=== PATIENT | male | born 1950 | race Caucasian/White ===

== ENCOUNTER → 2019-05-09 | Outpatient (CLI) | payer MEDICARE, OTHER ==
--- NOTE | 2019-05-09 13:47 | RAD ---
EXAM DESCRIPTION: Knee,Left Complete CLINICAL HISTORY: 69 years, Male, KNEE PAIN COMPARISON: None TECHNIQUE: Four views left knee FINDINGS: Four views left knee demonstrate minimal degenerative changes with no significant hemarthrosis. No fracture or dislocation is seen. The joint spaces well-maintained. IMPRESSION: 1. Mild degenerative changes otherwise negative left knee four views Electronically signed by: Nicholas Schneider MD 05/09/2019 1:46 PM [facility]
--- NOTE | 2019-05-09 13:48 | RAD ---
EXAM DESCRIPTION: Pelvis CLINICAL HISTORY: 69 years Male, LT HIP PAIN COMPARISON: None. FINDINGS: Single view of the pelvis demonstrates the bony pelvic ring intact with stents of prior surgery and mild scoliosis of the lower lumbar spine convex to the left. Right hip is essentially normal with severe end-stage degenerative changes and [id number] appearance of the left hip with hypertrophic marginal osteophytes. No acute fracture or deformity noted. IMPRESSION: End-stage degenerative left hip with [id number]-fa-hqkh appearance and marked hypertrophic changes and deformity of the acetabulum and femoral head. Electronically signed by: Nicholas Schneider MD 05/09/2019 1:[address] [facility]
== END ==
LOC: RAD 09:32
PROVIDERS: ATTEND Orthopaedic Surgery
DX: M16.12 Unilateral primary osteoarthritis, left hip (principal); M95.9 Acquired deformity of musculoskeletal system, unspecified; M17.12 Unilateral primary osteoarthritis, left knee

== ENCOUNTER → 2019-08-16 | Outpatient (CLI) | payer MEDICARE, OTHER ==
--- NOTE | 2019-08-16 19:16 | CT ---
EXAM DESCRIPTION: Pelvis: Computed Tomography. CLINICAL HISTORY: OSTEOARTHRITIS OF HIP LEFT COMPARISON: None. TECHNIQUE: Spiral-axial scans 2.5 x 2.5 mm intervals through the pelvis: no water soluble barium contrast; no IV contrast. Coronal and sagittal 2.0 mm reconstructions. Total Exam DLP: 596 mGy-cm. This exam was performed according to our departmental CT dose-optimization program which includes automated exposure control, adjustment of the mA and/or kV according to patient size and/or use of iterative reconstruction technique; to reduce radiation dose to as low as reasonably achievable (ALARA). FINDINGS: Hip Joints: Significant narrowing of the left hip joint space with deformity indicated by flattening of the normal convexity of the left femoral head surface and broadening of the concavity of the left acetabular surface. Wxbt-mr-oowl more prominent in the anterior joint space. Subchondral sclerosis and cyst/radiolucency formation femoral head and acetabulum. Several soft tissue bone fragment fragments. One is abutting the anterior lateral femoral head and the anterior lateral acetabulum measuring 3.5 x 2.2 cm in the transverse plane and 2.6 cm in the oblique sagittal plane. Well-corticated. A much smaller fragment less than 1 cm in greatest dimension superior to this fragment and lateral to the superior acetabulum anteriorly, not well corticated. A third fragment is anterior to the acetabulum and on the superior medial aspect of the large fragment measuring 2.4 x 1.3 cm in the transverse plane and 9 mm in the oblique sagittal plane. Well corticated. Large hypertrophic spur originating from the femoral head between the posterior medial femoral head and the acetabular articular surface. This is continuous with hypertrophic spur extending inferiorly from the medial articular surface. Small intra-articular bone fragments are noted. Pelvic Organs: Prostate gland with calcifications abutting th of the urinary bladder and the midline and slightly to the left of midline and also abutting the seminal vesicles. No free fluid. Minimal thickening of the urinary bladder wall with no radiodense stones. Mesentery: Negative. Small Bowel: Included segments normal caliber. Terminal Ileum: Not visualized. Cecum: Not visualized. Colon: Distal sigmoid colon is moderately redundant containing fecal matter with no complications. Spine and Bony Pelvis: Disc desiccation disc bulging and spondylosis at L3-4 and L4-5 with significant canal and foraminal involvement. Also facet arthrosis at both levels. Inferior lumbar levoscoliosis. Minimal narrowing of the right hip joint. Hypertrophic changes in the superolateral acetabulum. Enthesophytes on the iliac crests and pubic symphysis Inguinal Canals: Bilateral fatty inguinal hernias not containing bowel larger on the left than right. Bilateral inguinal lymph nodes. Pelvic Wall/Back Soft Tissues: Negative. IMPRESSION: 1. Advanced severe osteoarthritis left hip joint with ucvw-on-flgy on the anterior aspect. This bodies as described. Smallest fragment or fragments may represent acute fracture or recent displacement. 2. Scoliosis and spondylosis inferior lumbar spine. 3. Bilateral fatty inguinal hernias with no complications. 4. Redundant sigmoid colon distally with mild to moderate constipation. Electronically signed by: Jonah Workman MD 08/16/2019 7:15 PM CDT
== END ==
LOC: CT 10:13
PROVIDERS: ATTEND Orthopaedic Surgery
DX: M16.12 Unilateral primary osteoarthritis, left hip (principal); M21.852 Other specified acquired deformities of left thigh; M24.052 Loose body in left hip; M25.752 Osteophyte, left hip; M41.9 Scoliosis, unspecified; M47.896 Other spondylosis, lumbar region; K40.20 Bilateral inguinal hernia, without obstruction or gangrene, not specified as recurrent; K63.89 Other specified diseases of intestine; K59.00 Constipation, unspecified

== ENCOUNTER 2019-08-20 05:30 | Inpatient (IN) | payer MEDICARE, OTHER ==
[2019-08-20] MEDS ORDERED: SODIUM CHL 0.9% 100ML MINI-BAG 100 ML IVPB ONE (05:47)
[2019-08-20] MEDS ORDERED: SODIUM CHLORIDE 0.9% 100ML 100 ML IVPB ONE (05:48)
[2019-08-20] MEDS ORDERED: SODIUM CHLORIDE 0.9% 250ML 250 ML ONE (05:48)
[2019-08-20] MEDS ORDERED: ceFAZolin SODIUM 1 GM VIAL ONE ×2 (05:48→06:32)
[2019-08-20] MEDS ORDERED: LACTATED RINGERS 1,000 ML ONE ×2 (05:48→10:37)
[2019-08-20] MEDS ORDERED: VANCOMYCIN HCL INJ 1,000 MG VIAL IVPB ONE ×3 (05:49→06:48)
[2019-08-20] MEDS ORDERED: TRANEXAMIC ACID 1,000 MG/10 ML VIAL ONE ×2 (05:49→05:51)
[2019-08-20] MEDS ORDERED: BUPIVACAINE 0.5% 30 ML VIAL INJ ONE ×2 (06:32→06:48)
[2019-08-20] MEDS ORDERED: BUPIVACAINE LIPOSOME 13.3 MG/ML VIAL INJ ONE ×3 (06:32→07:11)
[2019-08-20] MEDS ORDERED: MIDAZOLAM INJ 5 MG/5 ML VIAL ONE (06:35)
[2019-08-20] MEDS ORDERED: ceFAZolin SODIUM 1 GM VIAL IRRIG ONE (06:48)
[2019-08-20] MEDS ORDERED: KETAMINE HCL 100 MG/ML VIAL IV ONE (07:00)
[2019-08-20] MEDS ORDERED: HYDROmorphone HCL INJ 2 MG/ML VIAL IV ONE (07:00)
[2019-08-20] MEDS ORDERED: ZOLPIDEM TARTRATE 5 MG TAB PO PRN (07:07)
[2019-08-20] MEDS ORDERED: SODIUM CHLORIDE 0.9% (FLUSH) 10 ML SYG IV PRN (07:07)
[2019-08-20] MEDS ORDERED: ONDANSETRON INJ 4 MG/2 ML VIAL IV PRN (07:07)
[2019-08-20] MEDS ORDERED: NALOXONE HCL INJ 0.4 MG/ML VIAL IV PRN (07:07)
[2019-08-20] MEDS ORDERED: ACETAMINOPHEN 500 MG TAB PO PRN (07:07)
[2019-08-20] MEDS ORDERED: traMADol HCL 50 MG TAB PO PRN (07:07)
[2019-08-20] MEDS ORDERED: ACETAMINOPHEN 325 MG TAB PO PRN (07:07)
[2019-08-20] MEDS ORDERED: PROMETHAZINE HCL INJ 12.5 MG in SODIUM CHLORIDE 0.9% 50ML 50 ML IVPB PRN (07:07)
[2019-08-20] MEDS ORDERED: MORPHINE SULFATE INJ 10 MG/ML VIAL IV PRN (07:07)
[2019-08-20] MEDS ORDERED: MORPHINE SULFATE INJ 10 MG/ML VIAL IM PRN (07:07)
[2019-08-20] MEDS ORDERED: TEMAZEPAM 15 MG CAP PO PRN (07:07)
[2019-08-20] MEDS ORDERED: ALUMINUM & MAGNESIUM HYDROXIDE 30 ML UD PO PRN (07:07)
[2019-08-20] MEDS ORDERED: BENZOCAINE-MENTH LOZ (CEPACOL) 1 EA LOZ MT PRN (07:07)
[2019-08-20] MEDS ORDERED: TRANEXAMIC ACID INJ 1,000 MG in SODIUM CHLORIDE 0.9% 100ML 100 ML IVPB ONE (07:07)
[2019-08-20] MEDS ORDERED: BISACODYL SUPPOSITORY 10 MG PR PRN (07:07)
[2019-08-20] MEDS ORDERED: PROMETHAZINE HCL INJ 25 MG in SODIUM CHLORIDE 0.9% 50ML 50 ML IVPB PRN (07:07)
[2019-08-20] MEDS ORDERED: MAGNESIUM HYDROXIDE 30 ML UD PO PRN (07:07)
[2019-08-20] MEDS ORDERED: CYCLOBENZAPRINE HCL 10 MG TAB PO PRN (07:07)
[2019-08-20] MEDS ORDERED: MORPHINE PCA 1 MG/ML 100 ML BAG IVPB SCH (07:30)
[2019-08-20] MEDS ORDERED: ELECTROLYTE-A 1,000 ML IVS ONE (08:29)
[2019-08-20] MEDS ORDERED: DEXAMETHASONE INJ 10 MG/ML VIAL IV ONE (10:00)
[2019-08-20] MEDS ORDERED: LIDOCAINE 1% 10 ML VIAL INJ ONE (10:00)
[2019-08-20] MEDS ORDERED: diphenhydrAMINE HCL 50 MG/ML VIAL IV ONE (10:00)
[2019-08-20] MEDS ORDERED: EPINEPHrine HCL AMP 1 MG/ML AMP IVPB ONE (10:00)
[2019-08-20] MEDS ORDERED: SODIUM CHLORIDE 0.9% 50 ML VIAL INJ ONE (10:00)
[2019-08-20] MEDS ORDERED: ePHEDrine SULF 50 MG/ML IV ONE (10:00)
[2019-08-20] MEDS ORDERED: PROPOFOL 200 MG/20 ML VIAL IV ONE (10:00)
[2019-08-20] MEDS ORDERED: MAGNESIUM SULFATE INJ 1 GM/2 ML VIAL IVPB ONE (10:00)
[2019-08-20] MEDS ORDERED: CADD ADMIN SET 1 EA PKG INJ ONE (10:05)
--- NOTE | 2019-08-20 11:49 | RAD ---
Pelvis 2 views INDICATION: Postoperative assessment IMPRESSION: Previous multilevel lumbar laminectomy and fusion. Status post left hip arthroplasty. Patient is rotated. No evident complication. Femoral stem is not completely visualized. Electronically signed by: Ramsey Harris MD 08/20/2019 11:47 AM CDT
--- NOTE | 2019-08-20 11:50 | RAD ---
Left hip 2 views INDICATION: Postoperative assessment IMPRESSION: Total left hip arthroplasty. Lucent area possibly cystic change or reeming inferior acetabulum into the ischial tuberosity. No evidence of fracture or dislocation. Electronically signed by: Ramsey Harris MD 08/20/2019 11:49 AM CDT
[2019-08-20] MEDS ORDERED: diphenhydrAMINE HCL 50 MG/ML VIAL ONE (13:36)
[2019-08-20] MEDS: DEX 5% W/NACL 0.45% 1000ML 1,000 ML IVS PRN (13:41)
[2019-08-20] MEDS: diphenhydrAMINE HCL 50 MG/ML VIAL IV PRN (13:53)
[2019-08-20] MEDS: IV SET AND CAP CHANGE INJ INJ SCH (16:22)
[2019-08-20] MEDS: CELECOXIB 100 MG CAP PO SCH ×2 (16:22→16:38)
[2019-08-20] MEDS: MAGNESIUM OXIDE 400 MG TAB PO SCH (16:23)
[2019-08-20] MEDS: ceFAZolin SODIUM 2 GM in SODIUM CHLORIDE 0.9% 100ML 100 ML IVPB SCH (16:38)
[2019-08-20] MEDS: VANCOMYCIN HCL INJ 1,000 MG in SODIUM CHLORIDE 0.9% 250ML 250 ML IVPB SCH (18:04)
[2019-08-20] MEDS ORDERED: ENOXAPARIN SODIUM 30 MG/0.3 ML SYG SUBCU ONE (20:12)
[2019-08-20] MEDS: DOCUSATE CALCIUM 240 MG CAP PO SCH (20:39)
[2019-08-20] MEDS: ENOXAPARIN SODIUM 30 MG/0.3 ML SYG SUBCU SCH (22:51)
[2019-08-21] MEDS: ceFAZolin SODIUM 2 GM in SODIUM CHLORIDE 0.9% 100ML 100 ML IVPB SCH ×2 (00:12→08:39)
[2019-08-21] MEDS ORDERED: LEVOTHYROXINE SODIUM 0.1 MG TAB ONE (02:53)
[2019-08-21] MEDS ORDERED: OMEPRAZOLE CAP 20 MG CAP ONE (02:53)
[2019-08-21] MEDS: LEVOTHYROXINE SODIUM 0.1 MG TAB PO SCH (06:07)
[2019-08-21] MEDS: OMEPRAZOLE CAP 20 MG CAP PO SCH (06:08)
[2019-08-21] MEDS: VANCOMYCIN HCL INJ 1,000 MG in SODIUM CHLORIDE 0.9% 250ML 250 ML IVPB SCH (06:08)
[2019-08-21] MEDS: CELECOXIB 100 MG CAP PO SCH ×2 (07:55→17:41)
[2019-08-21] MEDS: MAGNESIUM OXIDE 400 MG TAB PO SCH (08:40)
[2019-08-21] MEDS: TELMISARTAN 80 MG PO SCH (08:40)
[2019-08-21] MEDS: HYDROcodone 5MG/APAP 325MG 1 EA TAB PO PRN ×2 (08:40→13:18)
[2019-08-21] MEDS: diphenhydrAMINE HCL 50 MG/ML VIAL IV PRN (08:43)
[2019-08-21] MEDS: ALLOPURINOL 300 MG TAB PO SCH (10:07)
[2019-08-21] MEDS: ENOXAPARIN SODIUM 30 MG/0.3 ML SYG SUBCU SCH ×2 (11:56→22:35)
--- NOTE | 2019-08-21 13:07 | CONS ---
SUPERVISING PHYSICIAN: Angela Soto MD DATE OF CONSULTATION: 08/20/19 CHIEF COMPLAINT: Osteoarthritis of the left hip. HISTORY OF PRESENT ILLNESS: This is a 69-year-old male patient who has had a longstanding history of left hip pain with osteoarthritis. He has tried conservative measures and failed to get relief. He requested Dr. Medhat Valladares, orthopedic surgeon, for operative intervention. He was admitted today for surgical intervention. There were no problems intraoperatively and I am seeing the patient postoperatively on the Medical/Surgical Floor. PAST MEDICAL HISTORY: 1. Hypertension. 2. Hypothyroidism. 3. Gastroesophageal reflux disease. 4. Gout. PAST SURGICAL HISTORY: 1. Neck and back surgery. 2. Neck surgery x2. 3. Left knee surgery. 4. Spinal surgery. OUTPATIENT MEDICATIONS: 1. Allopurinol. 2. Levothyroxine. 3. Omeprazole. 4. Telmisartan. ALLERGIES: SULFA ANTIBIOTICS. CODE STATUS: He is DNR. SOCIAL HISTORY: He lives in [place]. He is . He denies smoking, ETOH or illicit drug use. REVIEW OF SYSTEMS: Negative except as per history of present illness. PHYSICAL EXAMINATION: VITAL SIGNS: Temperature 97.4, heart rate 78, blood pressure 132/77, respirations 16, O2 saturation 95% on room air. GENERAL: This is a 69-year-old male patient who is lying in his hospital bed. He is in no acute distress. HEENT: Normocephalic, atraumatic. Pupils are equal and reactive. Oropharynx is clear. NECK: Supple without mass. RESPIRATORY: Essentially clear to auscultation bilaterally. CARDIOVASCULAR: Regular rate and rhythm. GASTROINTESTINAL: Abdomen is soft, nondistended, nontender. Bowel sounds are positive. EXTREMITIES: He has a dressing to his left lateral hip that is dry and intact. Bilateral pedal pulses are palpable at+2. NEUROLOGIC: Awake, alert and oriented times three. Cranial nerves II-XII are grossly intact as tested. LABORATORY: His urine drug screen was negative. RADIOLOGY: Reports are per the EMR. IMPRESSION: 1. Osteoarthritis of the left hip status post left total hip arthroplasty performed by Dr. Medhat Valladares, orthopedic surgeon, postoperative day #0. 2. Hypertension. 3. Hypothyroidism on supplementation. 4. Gastroesophageal reflux disease. 5. Gout. PLAN: We will continue present supportive care. Orthopedic issues will be per Dr. Medhat Valladares, orthopedic surgeon. He will begin physical therapy for strengthening and conditioning tomorrow. His home medications have been restarted. I have encouraged good pulmonary hygiene. We will continue to monitor the patient closely and follow as needed. [facility][id number] [facility]
[2019-08-21] MEDS: DEX 5% W/NACL 0.45% 1000ML 1,000 ML IVS PRN (18:47)
[2019-08-21] MEDS: DOCUSATE CALCIUM 240 MG CAP PO SCH (21:20)
[2019-08-22] MEDS: OMEPRAZOLE CAP 20 MG CAP PO SCH (06:59)
[2019-08-22] MEDS: LEVOTHYROXINE SODIUM 0.1 MG TAB PO SCH (07:00)
[2019-08-22] MEDS: CELECOXIB 100 MG CAP PO SCH ×2 (07:32→18:03)
--- NOTE | 2019-08-22 08:16 | PN ---
SUPERVISING PHYSICIAN: Angela Soto MD DATE: 08/21/19 SUBJECTIVE: The patient is sitting up in his chair. He has no complaints of nausea, vomiting or diarrhea. He also felt like his physical therapy went well this morning. OBJECTIVE: VITAL SIGNS: Temperature 97.8, heart rate 68, blood pressure 117/64, respiratory rate 18, O2 saturation 96% on room air. RESPIRATORY: Essentially clear to auscultation bilaterally. CARDIAC: Regular rate and rhythm. EXTREMITIES: He has a dressing to his left lateral hip that is dry and intact. Bilateral pedal pulses are palpable at +2. NEUROLOGIC: Awake, alert and oriented times three. LABORATORY: Hemoglobin 11.3, hematocrit 34. All other labs and films have been reviewed via the EMR. ASSESSMENT: 1. Osteoarthritis of the left hip status post left total hip arthroplasty performed by Dr. Medhat Valladares, orthopedic surgeon, postoperative day #1. 2. Hypertension. 3. Hypothyroidism on supplementation. 4. Gastroesophageal reflux disease. 5. Gout. PLAN: We will continue present supportive care. Orthopedic issues will be per Dr. Medhat Valladares, orthopedic surgeon. He will continue with his physical therapy for strengthening and conditioning. We will hope for discharge on or Monday. I have encouraged good pulmonary hygiene. We will continue to monitor the patient closely and follow as needed. #[id number] [facility]
[2019-08-22] MEDS: HYDROcodone 5MG/APAP 325MG 1 EA TAB PO PRN (08:18)
[2019-08-22] MEDS: ALLOPURINOL 300 MG TAB PO SCH (08:18)
[2019-08-22] MEDS: MAGNESIUM OXIDE 400 MG TAB PO SCH (08:18)
[2019-08-22] MEDS: TELMISARTAN 80 MG PO SCH (08:19)
--- NOTE | 2019-08-22 08:25 | PN ---
DATE: 08/21/19 SUBJECTIVE: Mr. Cantrell is doing really well and his pain is very well controlled at this time. OBJECTIVE: Afebrile. Vital signs stable. Dressing is clean, dry and intact. ASSESSMENT: Status post total hip arthroplasty. PLAN: The plan is to begin approximately 25% weightbearing. [facility][id number] [facility]
--- NOTE | 2019-08-22 08:27 | PN ---
DATE: 08/22/19 SUBJECTIVE: Mr. Cantrell is doing well and his pain is well controlled. OBJECTIVE: Afebrile. Vital signs stable. Wound is clean. There are no signs or symptoms of infection. ASSESSMENT: Status post total hip arthroplasty. PLAN: The plan is to continue with partial weightbearing. [facility][id number] [facility]
--- NOTE | 2019-08-22 08:42 | OP ---
DATE OF PROCEDURE: 08/20/19 PREOPERATIVE DIAGNOSIS: 1. Left hip osteoarthritis. POSTOPERATIVE DIAGNOSIS: 1. Left hip osteoarthritis. PROCEDURE: 1. Left total hip arthroplasty. SURGEON: Medhat Valladares MD. BARNWORKER GROOM: Jonah Petty CST, SA-C. ANESTHESIA: General anesthesia. COMPLICATIONS: None. FINDINGS: Severe osteoarthritis with deformity of the acetabulum and extensive anterior wear. Also, approximately 2.5 cm leg length discrepancy. INDICATION: Mr. Cantrell has a history of severe pain. He has had difficulty with ambulation and difficulty with activities of daily living secondary to his discomfort. He requested operative intervention. After discussing the risks, benefits and alternatives to that, the patient has given informed consent for total hip arthroplasty. PROCEDURE: The patient was brought to the Operating Room and placed in supine position. General anesthesia was induced and the patient was transitioned into the right lateral decubitus position. The leg and hemipelvis were then sterilely prepped and draped. An incision was made centered on the greater trochanter and extending proximally and distally. Following that, the iliotibial band was split along the course of its fibers and the anterior one- third of the abductor musculature was elevated. The hip was dislocated and primary femoral neck cut was made. The acetabulum was exposed and the deformity mentioned above was noted. In an attempt to reform some of the anatomic acetabulum, reaming was carried out slightly posterior and up to a size 58. A size 58 felt as though it seated well with the trial and there was adequate coverage of the cup. Following the trial, it was removed and there was bleeding cancellous bone at the base of the acetabulum. Subsequent to that, it was irrigated and bone grafting that was harvested from the femoral head was placed. The final cup was impacted into place and the fixation was augmented with three screws. Following that, the hip was dislocated and the femoral canal was broached. Sequential broaching was used to a size 6 prosthesis. Following that, the hip was reduced and taken through a range of motion. There was no pending dislocation or instability. The leg lengths appeared to be equal. The hip was then dislocated and trial component was removed. The final component was impacted and again the hip was reduced. Following reduction of the hip, the hip was taken through a range of motion. There was no instability, nor was there any impingement. The wound was very thoroughly irrigated and the abductor musculature was reapproximated. Following reapproximation of the musculature, the iliotibial band was closed. The skin was closed with a combination of running and interrupted subcuticular stitches. Sterile dressings were placed. The patient was awoken from anesthesia and taken to Recovery. POSTOPERATIVE PLAN: The patient will be about 25% weightbearing on postoperative day 0. COMPONENTS: Jaswinder Accolade II stem size 6, Jaswinder Tritanium cup size 58 and 36 mm head. #[id number] [facility]
[2019-08-22] MEDS: SODIUM CHLORIDE 0.9% (FLUSH) 10 ML SYG IV SCH ×2 (10:20→20:51)
[2019-08-22] MEDS: ENOXAPARIN SODIUM 30 MG/0.3 ML SYG SUBCU SCH ×2 (11:20→22:30)
--- NOTE | 2019-08-22 12:00 | PN ---
SUPERVISING PHYSICIAN: Angela Soto MD DATE: 08/22/19 SUBJECTIVE: The patient is lying in bed with no complaints. He denies shortness of breath or chest pain. He feels his physical therapy is going well. OBJECTIVE: VITAL SIGNS: Temperature 98.2, heart rate 64, blood pressure 104/58, respiratory rate 18, O2 saturation 95% on room air. RESPIRATORY: Essentially clear to auscultation bilaterally. CARDIAC: Regular rate and rhythm. ABDOMEN: Soft, nontender, nondistended. Bowel sounds are positive. EXTREMITIES: He has a dressing to his left lateral hip that is dry and intact. Bilateral pedal pulses are palpable at +2. NEUROLOGIC: Awake, alert and oriented times three. LABORATORY: There are no labs or films to report at this time. ASSESSMENT: 1. Osteoarthritis of the left hip status post left total hip arthroplasty performed by Dr. Medhat Valladares, orthopedic surgeon, postoperative day #2. 2. Hypertension. 3. Hypothyroidism on supplementation. 4. Gastroesophageal reflux disease. 5. Gout. PLAN: We will continue present supportive care. Orthopedic issues will be per Dr. Medhat Valladares, orthopedic surgeon. He will continue with his physical therapy for strengthening and conditioning. He hopefully can be discharged tomorrow to do outpatient physical therapy at [facility] in [place]. I encouraged good pulmonary hygiene. We will continue to monitor the patient closely and follow as needed. #[id number] [facility]
[2019-08-22] MEDS: DOCUSATE CALCIUM 240 MG CAP PO SCH (20:47)
[2019-08-23] MEDS: LEVOTHYROXINE SODIUM 0.1 MG TAB PO SCH (05:59)
[2019-08-23] MEDS: OMEPRAZOLE CAP 20 MG CAP PO SCH (05:59)
[2019-08-23] MEDS: CELECOXIB 100 MG CAP PO SCH (07:27)
[2019-08-23] MEDS: IV SET AND CAP CHANGE INJ INJ SCH (08:23)
[2019-08-23] MEDS: ALLOPURINOL 300 MG TAB PO SCH (09:51)
[2019-08-23] MEDS: TELMISARTAN 80 MG PO SCH (09:51)
[2019-08-23] MEDS: MAGNESIUM OXIDE 400 MG TAB PO SCH (09:51)
[2019-08-23] MEDS: SODIUM CHLORIDE 0.9% (FLUSH) 10 ML SYG IV SCH (09:52)
[2019-08-23 09:55] VITALS: O2SAT 95
[2019-08-23] MEDS: ENOXAPARIN SODIUM 30 MG/0.3 ML SYG SUBCU SCH (13:30)
[2019-08-23 20:09] VITALS: BP 128/76; TEMP 98
[2019-08-23] MEDS ORDERED: BISACODYL SUPPOSITORY 10 MG PR ONE (21:00)
[2019-08-23] MEDS ORDERED: MAGNESIUM HYDROXIDE 30 ML UD PO ONE (21:00)
--- NOTE | 2019-09-02 08:24 | DS ---
SUPERVISING PHYSICIAN: Angela Soto MD ADMISSION DIAGNOSIS: 1. Osteoarthritis of the left hip status post left total hip arthroplasty performed by Dr. Medhat Valladares, orthopedic surgeon, postoperative day #0. 2. Hypertension. 3. Hypothyroidism on supplementation. 4. Gastroesophageal reflux disease. 5. Gout. DISCHARGE DIAGNOSIS: 1. Osteoarthritis of the left hip status post left total hip arthroplasty performed by Dr. Medhat Valladares, orthopedic surgeon, postoperative day #3. 2. Hypertension. 3. Hypothyroidism on supplementation. 4. Gastroesophageal reflux disease. 5. Gout. HISTORY OF PRESENT ILLNESS: This is a 69-year-old male patient who has had a longstanding history of left hip pain with osteoarthritis. He has tried conservative measures and failed to get relief. He requested Dr. Medhat Valladares, orthopedic surgeon, for operative intervention. He was admitted today for surgical intervention. There were no problems intraoperatively and I am seeing the patient postoperatively on the Medical/Surgical Floor. LABORATORY: Postoperative hemoglobin 11.3 and hematocrit 34.0. Urine drug screen was negative for all substances tested. RADIOLOGY: Please see pre and postoperative radiology reports. CONSULTATION: Medical consultation via hospitalist services. Please see consultation note for details. PROCEDURE: Left total hip arthroplasty. Please see Dr. Valladares's operative note for details. HOSPITAL COURSE: Mr. Cantrell was admitted for total hip arthroplasty. He did well intraoperative with no complications. Postoperatively, he did well with his physical therapy. Clinically, he progressed well enough to continue with outpatient management to continue with [facility] in [place]. PLAN: Mr. Cantrell was discharged on 08/23/19 to continue with physical therapy through [facility] in [place]. He was to resume his usual diet as tolerated. Activities were as per physical therapy with a walker. He was given prescription for [place] written by Dr. Valladares as well as Flexeril for muscle spasms with anticoagulation continued for DVT prophylaxis with Xarelto. He was to shower with no tub baths. CONDITION ON DISCHARGE: Stable and improved. PRESCRIPTIONS ON DISCHARGE: 1. Flexeril 10 mg daily at bedtime, #30, no refills. 2. Xarelto 10 mg for 26 days, no refills. 3. [place] 5/[address] Valladares. All other medications prior to hospital were continued. DISPOSITION: The patient was discharged home. [facility][id number] [facility]
== END 2019-08-23 13:35 | disposition home or self-care (01) | DRG 470 ==
LOC: AMB 05:30 → MS 10:43
PROVIDERS: ADMIT Orthopaedic Surgery; ATTEND Nurse Practitioner Family
PROC: 0SRB04A Replacement of Left Hip Joint with Ceramic on Polyethylene Synthetic Substitute, Uncemented, Open Approach (ICD-10-PCS; principal; 2019-08-20 07:30)
DX: M16.12 Unilateral primary osteoarthritis, left hip (principal); K21.9 Gastro-esophageal reflux disease without esophagitis; I10 Essential (primary) hypertension; E03.9 Hypothyroidism, unspecified; M10.9 Gout, unspecified; Z66 Do not resuscitate; Z88.2 Allergy status to sulfonamides; Z79.899 Other long term (current) drug therapy